=== PATIENT | male | born 1955 | race Caucasian/White ===

== ENCOUNTER 2023-09-05 10:55 | Outpatient (RCR) | payer MEDICARE, OTHER, SELFPAY | END 2023-09-05 12:20 | disposition home or self-care (01) | LOC: RST 10:55 | PROVIDERS: ATTENDING PHYSICIAN Pediatrics Adolescent Medicine; PRIMARYCARE PHYSICIAN Student in an Organized Health Care Education/Training Program | DX: R49.0 Dysphonia (principal) | CPT/HCPCS: 92507 ==

== ENCOUNTER 2023-12-15 10:08 | Outpatient (RCR) | payer MEDICARE, OTHER, SELFPAY | END 2023-12-15 23:59 | disposition home or self-care (01) | LOC: RST 10:08 | PROVIDERS: ATTENDING PHYSICIAN Student in an Organized Health Care Education/Training Program | DX: R49.0 Dysphonia (principal); R47.01 Aphasia; R53.1 Weakness | CPT/HCPCS: 92524 ==

== ENCOUNTER 2024-01-07 09:16 | Outpatient (RCR) | payer MEDICARE, OTHER, SELFPAY | END 2024-01-07 23:59 | disposition home or self-care (01) | LOC: RST 09:16 | PROVIDERS: ATTENDING PHYSICIAN Student in an Organized Health Care Education/Training Program | DX: R49.0 Dysphonia (principal) | CPT/HCPCS: 92507 ==

== ENCOUNTER 2024-01-21 10:24 | Outpatient (RCR) | payer MEDICARE, OTHER, SELFPAY | END 2024-01-21 11:09 | disposition home or self-care (01) | LOC: RST 10:24 | PROVIDERS: ATTENDING PHYSICIAN Student in an Organized Health Care Education/Training Program | DX: R49.0 Dysphonia (principal) | CPT/HCPCS: 92507 ==

== ENCOUNTER 2024-04-16 09:27 | Outpatient (RCR) | payer MEDICARE, OTHER, SELFPAY | END 2024-04-16 23:59 | disposition home or self-care (01) | LOC: RPT 09:27 | PROVIDERS: ATTENDING PHYSICIAN Student in an Organized Health Care Education/Training Program | DX: G31.01 Pick's disease (principal); F02.80 Dementia in other diseases classified elsewhere, unspecified severity, without behavioral disturbance, psychotic disturbance, mood disturbance, and anxiety; G31.9 Degenerative disease of nervous system, unspecified; R47.01 Aphasia | CPT/HCPCS: 92523; 97110; 97112; 97162 ==

== ENCOUNTER 2024-05-20 06:19 | Outpatient (RCR) | payer MEDICARE, OTHER, SELFPAY | END 2024-05-20 23:59 | disposition home or self-care (01) | LOC: ROT 06:19 | PROVIDERS: ATTENDING PHYSICIAN Student in an Organized Health Care Education/Training Program | DX: R26.9 Unspecified abnormalities of gait and mobility (principal); R47.01 Aphasia; Z73.6 Limitation of activities due to disability; G31.01 Pick's disease; F02.80 Dementia in other diseases classified elsewhere, unspecified severity, without behavioral disturbance, psychotic disturbance, mood disturbance, and anxiety | CPT/HCPCS: 92507; 97110; 97112; 97167; 97530 ==

== ENCOUNTER 2024-06-17 14:27 | Outpatient (RCR) | payer MEDICARE, OTHER, SELFPAY | END 2024-06-17 23:59 | disposition home or self-care (01) | LOC: ROT 14:27 | PROVIDERS: ATTENDING PHYSICIAN Student in an Organized Health Care Education/Training Program | DX: G31.01 Pick's disease (principal); F02.80 Dementia in other diseases classified elsewhere, unspecified severity, without behavioral disturbance, psychotic disturbance, mood disturbance, and anxiety; R26.9 Unspecified abnormalities of gait and mobility; R47.01 Aphasia | CPT/HCPCS: 92507; 97110; 97112; 97530 ==

== ENCOUNTER 2024-07-20 11:02 | Outpatient (RCR) | payer MEDICARE, OTHER, SELFPAY | END 2024-07-20 23:59 | disposition home or self-care (01) | LOC: ROT 11:02 | PROVIDERS: ATTENDING PHYSICIAN Student in an Organized Health Care Education/Training Program | DX: G31.01 Pick's disease (principal); F02.80 Dementia in other diseases classified elsewhere, unspecified severity, without behavioral disturbance, psychotic disturbance, mood disturbance, and anxiety; Z73.6 Limitation of activities due to disability; G31.9 Degenerative disease of nervous system, unspecified; R47.01 Aphasia; M62.81 Muscle weakness (generalized) | CPT/HCPCS: 92507; 97530 ==

== ENCOUNTER 2024-08-16 06:45 | Outpatient (RCR) | payer MEDICARE, OTHER, SELFPAY | END 2024-08-16 23:59 | disposition home or self-care (01) | LOC: ROT 06:45 | PROVIDERS: ATTENDING PHYSICIAN Student in an Organized Health Care Education/Training Program | DX: G31.01 Pick's disease (principal); F02.80 Dementia in other diseases classified elsewhere, unspecified severity, without behavioral disturbance, psychotic disturbance, mood disturbance, and anxiety; Z73.6 Limitation of activities due to disability; R47.01 Aphasia | CPT/HCPCS: 92507; 97530 ==

== ENCOUNTER 2024-08-31 06:44 | Outpatient (RCR) | payer MEDICARE, OTHER, SELFPAY | END 2024-08-31 23:59 | disposition home or self-care (01) | LOC: ROT 06:44 | PROVIDERS: ATTENDING PHYSICIAN Student in an Organized Health Care Education/Training Program | DX: G31.01 Pick's disease (principal); F02.80 Dementia in other diseases classified elsewhere, unspecified severity, without behavioral disturbance, psychotic disturbance, mood disturbance, and anxiety; Z73.6 Limitation of activities due to disability; G31.9 Degenerative disease of nervous system, unspecified; R47.01 Aphasia | CPT/HCPCS: 92507; 97530 ==

== ENCOUNTER 2024-10-06 08:38 | Outpatient (RCR) | payer MEDICARE, SELFPAY | END 2024-10-06 23:59 | disposition home or self-care (01) | LOC: ROT 08:38 | PROVIDERS: ATTENDING PHYSICIAN Student in an Organized Health Care Education/Training Program | DX: G31.01 Pick's disease (principal); F02.80 Dementia in other diseases classified elsewhere, unspecified severity, without behavioral disturbance, psychotic disturbance, mood disturbance, and anxiety; Z73.6 Limitation of activities due to disability; G31.9 Degenerative disease of nervous system, unspecified; R47.01 Aphasia | CPT/HCPCS: 92507; 92523; 97530; 97535 ==

== ENCOUNTER 2024-10-19 12:01 | Outpatient (RCR) | payer MEDICARE, SELFPAY | END 2024-10-19 23:59 | disposition home or self-care (01) | LOC: RPT 12:01 | PROVIDERS: ATTENDING PHYSICIAN Psychiatry & Neurology Neurology; FAMILY PHYSICIAN Student in an Organized Health Care Education/Training Program | DX: R26.89 Other abnormalities of gait and mobility (principal); Z73.6 Limitation of activities due to disability; R26.2 Difficulty in walking, not elsewhere classified; R47.01 Aphasia | CPT/HCPCS: 97110; 97112; 97162; 97530 ==

== ENCOUNTER 2024-10-26 11:57 | Outpatient (RCR) | payer MEDICARE, SELFPAY | END 2024-10-26 23:59 | disposition home or self-care (01) | LOC: ROT 11:57 | PROVIDERS: ATTENDING PHYSICIAN Student in an Organized Health Care Education/Training Program | DX: G31.01 Pick's disease (principal); F02.80 Dementia in other diseases classified elsewhere, unspecified severity, without behavioral disturbance, psychotic disturbance, mood disturbance, and anxiety; Z73.6 Limitation of activities due to disability; G31.9 Degenerative disease of nervous system, unspecified; R47.01 Aphasia | CPT/HCPCS: 92507; 97530; 97535 ==

== ENCOUNTER 2024-11-09 14:03 | Outpatient (RCR) | payer MEDICARE, SELFPAY | END 2024-11-09 23:59 | disposition home or self-care (01) | LOC: RPT 14:03 | PROVIDERS: ATTENDING PHYSICIAN Psychiatry & Neurology Neurology; FAMILY PHYSICIAN Student in an Organized Health Care Education/Training Program | DX: R26.89 Other abnormalities of gait and mobility (principal); Z73.6 Limitation of activities due to disability; R26.2 Difficulty in walking, not elsewhere classified; R47.01 Aphasia | CPT/HCPCS: 97110; 97112; 97530 ==

== ENCOUNTER 2024-11-23 10:31 | Outpatient (RCR) | payer MEDICARE, SELFPAY | END 2024-11-24 10:32 | disposition home or self-care (01) | LOC: RPT 10:31 | PROVIDERS: ATTENDING PHYSICIAN Psychiatry & Neurology Neurology; FAMILY PHYSICIAN Student in an Organized Health Care Education/Training Program | DX: R26.89 Other abnormalities of gait and mobility (principal); Z73.6 Limitation of activities due to disability; R26.2 Difficulty in walking, not elsewhere classified; R47.01 Aphasia | CPT/HCPCS: 97110; 97530 ==

== ENCOUNTER 2024-11-23 13:43 | Outpatient (RCR) | payer MEDICARE, SELFPAY | END 2024-11-23 23:59 | disposition home or self-care (01) | LOC: ROT 13:43 | PROVIDERS: ATTENDING PHYSICIAN Student in an Organized Health Care Education/Training Program | DX: G31.01 Pick's disease (principal); F02.80 Dementia in other diseases classified elsewhere, unspecified severity, without behavioral disturbance, psychotic disturbance, mood disturbance, and anxiety; Z73.6 Limitation of activities due to disability; G31.9 Degenerative disease of nervous system, unspecified; R47.01 Aphasia | CPT/HCPCS: 92507; 97530; 97535 ==

== ENCOUNTER 2024-12-21 13:09 | Outpatient (RCR) | payer MEDICARE, SELFPAY | END 2024-12-21 23:59 | disposition home or self-care (01) | LOC: ROT 13:09 | PROVIDERS: ATTENDING PHYSICIAN Student in an Organized Health Care Education/Training Program | DX: G31.01 Pick's disease (principal); F02.80 Dementia in other diseases classified elsewhere, unspecified severity, without behavioral disturbance, psychotic disturbance, mood disturbance, and anxiety; Z73.6 Limitation of activities due to disability; G31.9 Degenerative disease of nervous system, unspecified; R47.01 Aphasia | CPT/HCPCS: 92507; 97530; 97535 ==

== ENCOUNTER → 2024-12-31 09:51 | Outpatient (REF) | payer MEDICARE, SELFPAY | LOC: RST 09:51 | PROVIDERS: ATTENDING PHYSICIAN Student in an Organized Health Care Education/Training Program | DX: R13.10 Dysphagia, unspecified (principal) | CPT/HCPCS: 74230; 92611 ==

== ENCOUNTER 2025-01-25 10:59 | Outpatient (RCR) | payer MEDICARE, SELFPAY | END 2025-01-25 23:59 | disposition home or self-care (01) | LOC: ROT 10:59 | PROVIDERS: ATTENDING PHYSICIAN Student in an Organized Health Care Education/Training Program | DX: G31.01 Pick's disease; Z73.6 Limitation of activities due to disability; G31.9 Degenerative disease of nervous system, unspecified; F02.80 Dementia in other diseases classified elsewhere, unspecified severity, without behavioral disturbance, psychotic disturbance, mood disturbance, and anxiety; R47.01 Aphasia | CPT/HCPCS: 92507; 97530 ==

== ENCOUNTER 2025-02-16 16:22 | Outpatient (RCR) | payer MEDICARE, SELFPAY | END 2025-02-16 23:59 | disposition home or self-care (01) | LOC: RPT 16:22 | PROVIDERS: ATTENDING PHYSICIAN Student in an Organized Health Care Education/Training Program | DX: R26.89 Other abnormalities of gait and mobility (principal); Z73.6 Limitation of activities due to disability; R47.01 Aphasia; G31.01 Pick's disease; G31.9 Degenerative disease of nervous system, unspecified; F02.80 Dementia in other diseases classified elsewhere, unspecified severity, without behavioral disturbance, psychotic disturbance, mood disturbance, and anxiety | CPT/HCPCS: 97110; 97112; 97162; 97530 ==

== ENCOUNTER 2025-03-03 08:48 | Outpatient (RCR) | payer MEDICARE, SELFPAY | END 2025-03-03 23:59 | disposition home or self-care (01) | LOC: ROT 08:48 | PROVIDERS: ATTENDING PHYSICIAN Student in an Organized Health Care Education/Training Program | DX: R47.01 Aphasia (principal); G31.01 Pick's disease; Z73.6 Limitation of activities due to disability; F02.80 Dementia in other diseases classified elsewhere, unspecified severity, without behavioral disturbance, psychotic disturbance, mood disturbance, and anxiety; G31.9 Degenerative disease of nervous system, unspecified | CPT/HCPCS: 92507; 97535 ==

== ENCOUNTER 2025-03-15 10:54 | Outpatient (RCR) | payer MEDICARE, SELFPAY | END 2025-03-15 23:59 | disposition home or self-care (01) | LOC: RPT 10:54 | PROVIDERS: ATTENDING PHYSICIAN Student in an Organized Health Care Education/Training Program | DX: R26.89 Other abnormalities of gait and mobility (principal); Z73.6 Limitation of activities due to disability; R47.01 Aphasia; G31.01 Pick's disease; F02.80 Dementia in other diseases classified elsewhere, unspecified severity, without behavioral disturbance, psychotic disturbance, mood disturbance, and anxiety; G31.9 Degenerative disease of nervous system, unspecified | CPT/HCPCS: 97110; 97112; 97530 ==

== ENCOUNTER 2025-03-22 09:00 | Outpatient (RCR) | payer MEDICARE, SELFPAY | END 2025-03-22 23:59 | disposition home or self-care (01) | LOC: ROT 09:00 | PROVIDERS: ATTENDING PHYSICIAN Student in an Organized Health Care Education/Training Program | DX: G31.01 Pick's disease (principal); R47.01 Aphasia; Z73.6 Limitation of activities due to disability; F02.80 Dementia in other diseases classified elsewhere, unspecified severity, without behavioral disturbance, psychotic disturbance, mood disturbance, and anxiety; G31.9 Degenerative disease of nervous system, unspecified | CPT/HCPCS: 92507; 97530 ==

== ENCOUNTER 2025-03-22 11:41 | Outpatient (RCR) | payer MEDICARE, SELFPAY | END 2025-04-05 08:10 | disposition home or self-care (01) | LOC: RPT 11:41 | PROVIDERS: ATTENDING PHYSICIAN Student in an Organized Health Care Education/Training Program | DX: R26.89 Other abnormalities of gait and mobility (principal) | CPT/HCPCS: 97110; 97112; 97530 ==

== ENCOUNTER 2025-04-19 14:54 | Outpatient (RCR) | payer MEDICARE, SELFPAY | END 2025-04-19 23:59 | disposition home or self-care (01) | LOC: RPT 14:54 | PROVIDERS: ATTENDING PHYSICIAN Student in an Organized Health Care Education/Training Program | DX: R55 Syncope and collapse (principal); R26.89 Other abnormalities of gait and mobility; Z73.6 Limitation of activities due to disability; R26.2 Difficulty in walking, not elsewhere classified; R47.01 Aphasia; M62.81 Muscle weakness (generalized); Z91.81 History of falling | CPT/HCPCS: 97110; 97112; 97162; 97530 ==

== ENCOUNTER 2025-05-20 06:24 | Outpatient (RCR) | payer MEDICARE, SELFPAY | END 2025-05-20 23:59 | disposition home or self-care (01) | LOC: ROT 06:24 | PROVIDERS: ATTENDING PHYSICIAN Student in an Organized Health Care Education/Training Program | DX: R55 Syncope and collapse (principal); R26.89 Other abnormalities of gait and mobility; Z73.6 Limitation of activities due to disability; R26.2 Difficulty in walking, not elsewhere classified; R47.01 Aphasia; M62.81 Muscle weakness (generalized); Z91.81 History of falling | CPT/HCPCS: 92507; 92523; 97110; 97112; 97167; 97530 ==

== ENCOUNTER 2025-06-20 13:49 | Outpatient (RCR) | payer MEDICARE, SELFPAY | END 2025-06-20 23:59 | disposition home or self-care (01) | LOC: ROT 13:49 | PROVIDERS: ATTENDING PHYSICIAN Student in an Organized Health Care Education/Training Program | DX: R55 Syncope and collapse (principal); R26.89 Other abnormalities of gait and mobility; Z73.6 Limitation of activities due to disability; R26.2 Difficulty in walking, not elsewhere classified; R47.01 Aphasia; M62.81 Muscle weakness (generalized); Z91.81 History of falling; F02.80 Dementia in other diseases classified elsewhere, unspecified severity, without behavioral disturbance, psychotic disturbance, mood disturbance, and anxiety; R47.1 Dysarthria and anarthria; R41.841 Cognitive communication deficit; R26.81 Unsteadiness on feet; R29.6 Repeated falls | CPT/HCPCS: 92507; 97110; 97112; 97530; 97535 ==

== ENCOUNTER 2025-07-20 12:32 | Outpatient (RCR) | payer MEDICARE, SELFPAY | END 2025-07-22 11:23 | disposition home or self-care (01) | LOC: ROT 12:32 | PROVIDERS: ATTENDING PHYSICIAN Student in an Organized Health Care Education/Training Program | DX: R55 Syncope and collapse (principal); R26.89 Other abnormalities of gait and mobility; Z73.6 Limitation of activities due to disability; R26.2 Difficulty in walking, not elsewhere classified; R47.01 Aphasia; M62.81 Muscle weakness (generalized); F02.80 Dementia in other diseases classified elsewhere, unspecified severity, without behavioral disturbance, psychotic disturbance, mood disturbance, and anxiety; R47.1 Dysarthria and anarthria; R41.841 Cognitive communication deficit; R26.81 Unsteadiness on feet; R29.6 Repeated falls; Z91.81 History of falling | CPT/HCPCS: 92507; 97110; 97112; 97530; 97535 ==

== ENCOUNTER 2025-08-09 08:30 | Outpatient (RCR) | payer SELFPAY | END 2025-08-09 23:59 | disposition home or self-care (01) | LOC: RPT 08:30 | PROVIDERS: ATTENDING PHYSICIAN Student in an Organized Health Care Education/Training Program | DX: R47.01 Aphasia (principal); R47.1 Dysarthria and anarthria; R41.841 Cognitive communication deficit; F02.80 Dementia in other diseases classified elsewhere, unspecified severity, without behavioral disturbance, psychotic disturbance, mood disturbance, and anxiety; R29.6 Repeated falls | CPT/HCPCS: 97110; 97112; 97530 ==

== ENCOUNTER 2025-08-14 20:56 | Emergency (ER) | payer MEDICARE, SELFPAY ==
[2025-08-14 20:59] VITALS: BP 136/78
[2025-08-14 21:00] VITALS: BP 136/78
[2025-08-14 21:07] VITALS: BMI 29.3
[2025-08-14 21:43] VITALS: BP 130/76
[2025-08-14 22:00] VITALS: BP 137/78
--- NOTE | 2025-08-14 22:55 | ED.GENMED ---
History of Present Illness
General
Chief Complaint: Fall
Source: patient and family
Time Seen by Provider: 08/14/25 22:21
History of Present Illness
History of Present Illness:
This patient is a 70-year-old male presents to the emergency department accompanied by his daughter who he lives with. 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
There was no loss of conscious. His daughter heard him fall and immediately ran to him. She also reports that he was awake and alert, not confused, no seizure-like activity noted. However, he was noted to have a laceration at the top of the head.
Patient denies any complaints. He denies preceding symptoms to the fall, and here in the ER denies symptoms. His tetanus is up-to-date. He denies headache, visual changes, chest pain, shortness of breath, neck pain, numbness, focal weakness,
abdominal pain, nausea, vomiting.
Past History
Past History
ED Past Medical History: Hypercholesterolemia and Other (Progressive aphasia)
Social History
Tobacco: Non-smoker
Alcohol: None
Drug: None
Living: with family
Phy Exam
Physical Exam
Physical Exam:
GENERAL: Alert , in no apparent distress
EYE: pupils equal and reactive, EOMI, no nystagmus, no photophobia
NECK: Supple, no significant adenopathy, no midline tenderness.
ENT: o/p clr, mmm, no love, no raccoon, with the exception of head laceration no signs of head or facial injury noted.
CARDIAC: Regular rate and rhythm .
LUNGS: Clear breath sounds bilaterally, no acute respiratory distress, no wheezes/rales/rhonchi
ABDOMEN: Soft, without focal tenderness, no r/g, no cvat
NEUROLOGICAL: Alert and oriented, mild aphasia, [id number] normal, motor 5 out of 5, sensory intact cranial nerves II through XII intact
SKIN: Warm and dry, 3 cm incision noted at the upper forehead area without active bleeding
MUSCULOSKELETAL: No edema, well perfused.
PSYCH: Normal and appropriate interaction.
Course
Orders/Labs/Results
Orders:
Orders
08/14/25 21:21
CT Cervical Spine W/o Iv Contr Urgent
Reason For Exam: Fall with +headstrike
CT Head W/o Iv Contrast Urgent
Comment:
Reason For Exam: Fall with +headstrike
Vital Signs
Initial and Last Documented VS:
Initial Vital Signs
Temp Pulse Resp BP Pulse Ox
98.2 F 72 18 136/78 98
08/14/25 20:59 08/14/25 20:59 08/14/25 20:59 08/14/25 20:59 08/14/25 20:59
Last Documented Vital Signs
Temp Pulse Resp BP Pulse Ox
98.2 F 68 19 130/79 95
08/14/25 20:59 08/14/25 23:30 08/14/25 23:30 08/14/25 23:00 08/14/25 23:30
Procedures
Laceration Closure
Head:
Status of Wound: clean
Size of Wound in cm: 3
Description of Wound Edges: sharp
Preparation: cleaned with saline
Anesthesia: 1% Lidocaine with epi
Revision/Debridement: routine- no revision
Wound exploration: explored to base- no FB
Type of Closure: single layer closure
Skin Closure Material: 5-0 prolene
Number of sutures: 5
*Pulse Oximetry
SaO2: 98
Oxygen Mode of Delivery: Room air
Patient hypoxic: no
*Critical Care Note
Total Time (30-74mins, 75-104mins- exclusive of procedures): Not Applicable
Update Note
Update Note:
Patient presents to the Emergency Department with fall with laceration____
Number and Complexity of Problems Addressed at the Encounter
� Chronic conditions affecting care:
� Acute Exacerbation and/or Progression of Chronic Illness:
� Differential Diagnosis includes: But not limited to cervical fracture, intracranial bleed, laceration, skull fracture, etc. etc.
Amount and/or Complexity of Data to be Reviewed and Analyzed
� I performed an independent evaluation of and my interpretation is:
EKG:
CT: Read by radiology head and neck NAD
Xrays:
Laboratory Studies:
Other:
� Review of other/old records reveals:
� Clinical information was obtained by an independent historian:
� Prescriptions/Medications Considered but not given:
� Further testing considered but not performed:
Risk of Complications and/or Morbidity or Mortality of Patient Management
� Social determinants of health affecting care:
� Discussion with other providers (PCP, Hospitalists, Consultants, etc):
� Escalation of care including admission/observation vs risk of discharge considered: Laceration repaired, discussed with patient and family importance of follow-up and reasons return to the ER, suture removal, wound care, etc.
Examination otherwise unremarkable. No preceding symptoms to his fall.
ED Attending Note
-
Portions of this chart may have been created with voice recognition software.� Occasional wrong word or��sound alike� substitutions may have occurred due to the inherent limitations of voice recognition software.
Discharge Plan
Departure
Patient Disposition: Home (Routine Discharge)
Date of Disposition: 08/14/25
Time of Disposition: 23:38
Patient with high blood pressure during this ER visit?: Yes
Condition: Good
Discharge Problem:
Closed head injury, Laceration
Instructions: Head Injury in Adults (DC), Laceration Repair With Tal (DC), BLOOD PRESSURE
Activity Restrictions/Additional Instructions:
IF YOU NOTICE REDNESS, PAIN, DRAINAGE, OR SWELLING AT WOUND SITE, OR DEVELOP A FEVER, PLEASE HAVE THE WOUND EVALUATED SOON POSSIBLE. IF YOU DEVELOP NECK PAIN, NUMBNESS, VOMITING, SEVERE HEADACHE, OR OTHER WORRISOME SIGNS, PLEASE RETURN TO THE
ER IMMEDIATELY. YOU HAD 5 SUTURES PLACED AND THEY SHOULD BE REMOVED IN APPROXIMATELY 5-7 DAYS.
Interventions
Interventions:
*Risk Screen - Suicide Last Done: 08/14/25 21:02
*General Assessment Last Done: 08/14/25 21:02
*Neglect/Abuse Screening Last Done: 08/14/25 21:02
*ED- Fall Risk Assessment Last Done: 08/14/25 21:02
*ED COVID-19 Vaccine History Last Done: 08/14/25 21:02
*ED Influenza Vaccine History Last Done: 08/14/25 21:02
*Nursing Disposition Last Done: 08/14/25 23:43
ED-Musculoskeletal Assessment Last Done: 08/14/25 21:05
ED- Neurological Assessment Last Done: 08/14/25 21:05
ED-Skin Assessment Last Done: 08/14/25 21:05
Discharge Date and Time
Discharge Date/Time: 08/14/25 23:44
Print Language: SWEDISH
[2025-08-14 23:00] VITALS: BP 130/79
== END 2025-08-14 23:44 | disposition home or self-care (01) ==
LOC: EMR 20:56
PROVIDERS: EMERGENCY PHYSICIAN Emergency Medicine; FAMILY PHYSICIAN Student in an Organized Health Care Education/Training Program
DX: S01.81XA Laceration without foreign body of other part of head, initial encounter (principal); W01.198A Fall on same level from slipping, tripping and stumbling with subsequent striking against other object, initial encounter; Y93.G1 Activity, food preparation and clean up
CPT/HCPCS: 12013; 99284; 70450; 72125

== ENCOUNTER 2025-08-16 11:25 | Outpatient (RCR) | payer MEDICARE, SELFPAY | END 2025-08-16 23:59 | disposition home or self-care (01) | LOC: ROT 11:25 | PROVIDERS: ATTENDING PHYSICIAN Student in an Organized Health Care Education/Training Program | DX: R55 Syncope and collapse (principal); R26.89 Other abnormalities of gait and mobility; Z73.6 Limitation of activities due to disability; F02.80 Dementia in other diseases classified elsewhere, unspecified severity, without behavioral disturbance, psychotic disturbance, mood disturbance, and anxiety; R47.01 Aphasia; R26.81 Unsteadiness on feet; R47.1 Dysarthria and anarthria; R41.841 Cognitive communication deficit; R29.6 Repeated falls | CPT/HCPCS: 92507; 97110; 97112; 97530; 97535 ==

== ENCOUNTER 2025-09-19 12:00 | Outpatient (RCR) | payer SELFPAY | END 2025-09-20 23:59 | disposition home or self-care (01) | LOC: RPT 12:00 | PROVIDERS: ATTENDING PHYSICIAN Student in an Organized Health Care Education/Training Program | DX: R47.01 Aphasia (principal); R47.1 Dysarthria and anarthria; R41.841 Cognitive communication deficit; F02.80 Dementia in other diseases classified elsewhere, unspecified severity, without behavioral disturbance, psychotic disturbance, mood disturbance, and anxiety; R29.6 Repeated falls | CPT/HCPCS: 97110; 97112; 97530 ==

== ENCOUNTER 2025-09-19 12:56 | Outpatient (RCR) | payer MEDICARE, SELFPAY | END 2025-09-19 23:59 | disposition home or self-care (01) | LOC: ROT 12:56 | PROVIDERS: ATTENDING PHYSICIAN Student in an Organized Health Care Education/Training Program | DX: R55 Syncope and collapse (principal); R26.89 Other abnormalities of gait and mobility; Z73.6 Limitation of activities due to disability; F02.80 Dementia in other diseases classified elsewhere, unspecified severity, without behavioral disturbance, psychotic disturbance, mood disturbance, and anxiety; R47.01 Aphasia; R26.81 Unsteadiness on feet; R47.1 Dysarthria and anarthria; R41.841 Cognitive communication deficit; R29.6 Repeated falls | CPT/HCPCS: 92507; 97110; 97112; 97530; 97535 ==